=== PATIENT | female | born 1995 | race Caucasian/White ===

== ENCOUNTER 2017-02-12 03:36 | Emergency (ER) | payer OTHER ==
[~2017-02-12] VITALS: Ht 172.7 cm; Wt 60.0 kg
[2017-02-12 04:09] VITALS: BP 116/71; PULSE 81; RESP 19; TEMP 97.9; O2SAT 99
--- NOTE | 2017-02-12 04:12 | PD ---
HPI Chief Complaint: Psychiatric Symptoms Time Seen by Provider: 04:00 Travel History International Travel<30 days: No Contact w/Intl Traveler<30days: No Traveled to known affect area: No History of Present Illness HPI This is a 21-year-old female who presents under [place] act by the police department. The patient reports that she has been depressed and having occasional thoughts of suicide for years. She reports that she was drinking alcohol tonight at a [place] party, went home where her roommate wanted to drink. Someone called the police and the police placed her under [place] act. She reports that she does not see a psychiatrist or primary care physician, cannot afford to. She reports that she recently moved here from [place]. In addition to drinking alcohol she occasionally smokes marijuana. Denies any other illicit drug use. She does endorse self cutting for years. She is requesting a nicotine patch. She has no other complaints at this time. [facility] Social History Alcohol Use: Yes Tobacco Use: Yes Substance Use: Yes Allergies-Medications (Allergen,Severity, Reaction): Coded Allergies: No Known Allergies (Unverified , 02/12/17) Reported Meds & Prescriptions Reported Meds & Active Scripts Active No Active Prescriptions or Reported Medications Review of Systems Except as stated in HPI: all other systems reviewed are Neg Physical Exam Narrative GENERAL: Well-developed well-nourished female in no acute distress SKIN: Warm and dry. Old linear abrasions noted on the extremities. HEAD: Atraumatic. Normocephalic. EYES: Pupils equal and round. No scleral icterus. No injection or drainage. ENT: No nasal bleeding or discharge. Mucous membranes pink and moist. NECK: Trachea midline. No JVD. CARDIOVASCULAR: Regular rate and rhythm. No murmur appreciated. RESPIRATORY: No accessory muscle use. Clear to auscultation. Breath sounds equal bilaterally. GASTROINTESTINAL: Abdomen soft, non-tender, nondistended. Hepatic and splenic margins not palpable. MUSCULOSKELETAL: No obvious deformities. No edema NEUROLOGICAL: Awake and alert. No obvious cranial nerve deficits. Motor grossly within normal limits. Normal speech. PSYCHIATRIC: Appropriate mood and affect; insight and judgment normal. Data Data Last Documented VS Vital Signs Date Time Temp Pulse Resp B/P Pulse Ox O2 Delivery O2 Flow Rate FiO2 02/12/17 04:12 82 19 02/12/17 04:09 97.9 116/71 99 Orders Complete Blood Count With Diff (02/12/17 04:07) Comprehensive Metabolic Panel (02/12/17 04:07) Ed Urine Pregnancytest Poc (02/12/17 04:07) Psych Screen (02/12/17 04:07) Drug Screen, Random Urine (02/12/17 04:07) Alcohol (Ethanol) (02/12/17 04:07) Nicotine 14 Mg Patch.24 Hr (Habitrol 14 (02/12/17 04:15) Lorazepam Inj (Ativan Inj) (02/12/17 04:30) Labs Laboratory Tests Test 02/12/17 02/12/17 03:55 04:00 Urine Opiates Screen NEG Urine Barbiturates Screen NEG Urine Amphetamines Screen NEG Urine Benzodiazepines Screen NEG Urine Cocaine Screen NEG Urine Cannabinoids Screen POS White Blood Count 7.4 TH/MM3 Red Blood Count 4.23 MIL/MM3 Hemoglobin 13.4 GM/DL Hematocrit 38.3 % Mean Corpuscular Volume 90.5 FL Mean Corpuscular Hemoglobin 31.6 PG Mean Corpuscular Hemoglobin 34.9 % Concent Red Cell Distribution Width 12.1 % Platelet Count 268 TH/MM3 Mean Platelet Volume 9.0 FL Neutrophils (%) (Auto) 48.4 % Lymphocytes (%) (Auto) 33.9 % Monocytes (%) (Auto) 8.2 % Eosinophils (%) (Auto) 7.1 % Basophils (%) (Auto) 2.4 % Neutrophils # (Auto) 3.6 TH/MM3 Lymphocytes # (Auto) 2.5 TH/MM3 Monocytes # (Auto) 0.6 TH/MM3 Eosinophils # (Auto) 0.5 TH/MM3 Basophils # (Auto) 0.2 TH/MM3 CBC Comment DIFF FINAL Differential Comment Sodium Level 145 MEQ/L Potassium Level 3.6 MEQ/L Chloride Level 114 MEQ/L Carbon Dioxide Level 21.9 MEQ/L Anion Gap 9 MEQ/L Blood Urea Nitrogen 9 MG/DL Creatinine 0.72 MG/DL Estimat Glomerular Filtration 104 ML/MIN Rate Random Glucose 93 MG/DL Calcium Level 8.5 MG/DL Total Bilirubin 0.3 MG/DL Aspartate Amino Transf 25 U/L (AST/SGOT) Alanine Aminotransferase 21 U/L (ALT/SGPT) Alkaline Phosphatase 77 U/L Total Protein 8.0 GM/DL Albumin 4.1 GM/DL Ethyl Alcohol Level 288 MG/DL MDM Medical Decision Making Medical Screen Exam Complete: Yes Emergency Medical Condition: Yes Medical Record Reviewed: Yes Differential Diagnosis Substance-induced disorder, acute psychosis, major depressive disorder, depressive disorder not otherwise specified, adjustment reaction Narrative Course 21-year-old female presents under Calh[place] act for psychiatric evaluation of suicidal thoughts. Mental health screening discussed with the patient. Psychiatric screen ordered. Positive cannabinoids screen and alcohol levels 288 otherwise unremarkable. The patient is medically cleared for psychiatric disposition. Diagnosis Primary Impression: Suicidal ideation Scripts No Active Prescriptions or Reported Meds Simeon Wahl Feb 12, 2017 04:12
[2017-02-12] MEDS ORDERED: NICOTINE 14 MG/24 HR PATCH T-DERMAL ONE (04:15)
[2017-02-12 04:18] LABS: AUTOMATED NEUTROPHIL # 3.6 TH/MM3 (1.8-7.7); BASOPHIL # 0.2 TH/MM3 (0-0.2); BASOPHIL % 2.4 % (0.0-2.0); EOSINOPHIL # 0.5 TH/MM3 (0-0.4); EOSINOPHIL % 7.1 % (0.0-4.0); HEMATOCRIT 38.3 % (35.0-46.0); HEMO FLAGS DIFF FINAL; LYMPH % 33.9 % (9.0-44.0); LYMPHOCYTE # 2.5 TH/MM3 (1.0-4.8); MEAN CELL VOLUME 90.5 FL (80.0-100.0); MEAN CORPUSCULAR HEMOGLOBIN 31.6 PG (27.0-34.0); MEAN CORPUSCULAR HGB CONC 34.9 % (32.0-36.0); MONO % 8.2 % (0.0-8.0); NEUT % 48.4 % (16.0-70.0); PLATELET COUNT 268 TH/MM3 (150-450); RED BLOOD COUNT 4.23 MIL/MM3 (4.00-5.30); RED CELL DISTRIBUTION WIDTH 12.1 % (11.6-17.2); WHITE BLOOD COUNT 7.4 TH/MM3 (4.0-11.0)
[2017-02-12 04:27] LABS: AMPHETAMINE, URINE NEG (NEG); BARBITURATES, URINE NEG (NEG); COCAINE, URINE NEG (NEG)
[2017-02-12] MEDS ORDERED: LORazepam 2 MG/ML VIAL IM ONE (04:30)
[2017-02-12 04:34] LABS: ALT (GPT) 21 U/L (9-42); ANION GAP 9 MEQ/L (5-15); AST (GOT) 25 U/L (16-38); BICARBONATE 21.9 MEQ/L (21.0-32.0); BLOOD UREA NITROGEN 9 MG/DL (7-18); CHLORIDE 114 MEQ/L (98-107); GLOMERULAR FILTRATION RATE 104 ML/MIN (>89); POTASSIUM 3.6 MEQ/L (3.5-5.1); SODIUM (NA) 145 MEQ/L (136-145)
[2017-02-12 04:36] LABS: ALKALINE PHOSPHATASE 77 U/L (45-117); TOTAL BILIRUBIN ADULT 0.3 MG/DL (0.2-1.0)
--- NOTE | 2017-02-12 10:20 | PD ---
History of Present Illness Chief Complaint: Psychiatric Symptoms Time Seen by Provider: 09:30 Travel History International Travel<30 Days: No Contact w/Intl Traveler<30days: No Known affected area: No Legal Status Legal Status: Calhoun Act [place] Act Signed By: History of Present Illness: This is a 21-year-old female who moved to [place] one week ago with her boyfriend. She was at a green party last night and became intoxicated. She explains that there was more booze to drink and so she went home and continued to drink. She is unsure if she made any suicidal comments but denies being suicidal when Calhoun acted. At this time she states, as she related to the emergency room physician that she is intermittently suicidal and has been for years. Additionally, she has been cutting herself for years as a coping mechanism and she denies that as a suicide attempt. The patient admits that she had too much to drink last night and was advised by this physician to discontinue drinking. She has a interview this morning for a job but states that will have to be rescheduled. Obviously her thinking is forward looking and both she and her boyfriend are going to be looking for jobs. Although the patient denies the ability to seek psychiatric care for financial reasons, this physician believes she should be referred to [facility] for her alcohol abuse and possible medication in the future. [facility] [employer] [employer] Past Medical History Medical History: Denies Significant Hx Immunizations Current: Yes ?: Not LMP: LAST MONTH Past Surgical History Surgical History: No Previous Surgery Psychiatric History Psychiatric History Years ago History of Inpatient Treatment: No Guns or firearms in home: No Social History Hx Alcohol Use: Yes Hx Tobacco Use: Yes Hx Substance Use: Yes Substance Use Type: Alcohol Hx of Substance Use Treatment: No Allergies-Medications (Allergen,Severity, Reaction): Coded Allergies: No Known Allergies (Unverified , 02/12/17) Reported Meds & Prescriptions Reported Meds & Active Scripts Active No Active Prescriptions or Reported Medications Review of Systems ROS Limitations: Clinical Condition Except as stated in HPI: all other systems reviewed are Neg Exam Exam Limitations: Clinical Condition Alert: Yes [place]: Person, Place, Date, Situation Mood: Calm Affect: Appropriate Speech: Clear, Logical Eye Contact: Normal Memory Intact: Immediate, Recent, Remote Insight/Judgement Adequate except for use of substances. MDM Medical Decision Making Medical Record Reviewed: Yes Assessment/Plan In this physician's opinion, the patient does not meet criteria for Calhoun act or 4 inpatient psychiatric hospitalization. Her Calhoun act was lifted and she was recommended to go to [facility] for alcohol abuse. She was also advised to stop drinking. Once she is clean and sober for a period of time, she can be evaluated for her complaints of chronic suicidality. At this point she admits she is not suicidal. Orders Complete Blood Count With Diff (02/12/17 04:07) Comprehensive Metabolic Panel (02/12/17 04:07) Ed Urine Pregnancytest Poc (02/12/17 04:07) Psych Screen (02/12/17 04:07) Drug Screen, Random Urine (02/12/17 04:07) Alcohol (Ethanol) (02/12/17 04:07) Nicotine 14 Mg Patch.24 Hr (Habitrol 14 (02/12/17 04:15) Lorazepam Inj (Ativan Inj) (02/12/17 04:30) Results Vital Signs Date Time Temp Pulse Resp B/P Pulse Ox O2 Delivery O2 Flow Rate FiO2 02/12/17 04:12 82 19 02/12/17 04:09 97.9 81 19 116/71 99 Laboratory Tests Test 02/12/17 02/12/17 03:55 04:00 Urine Opiates Screen NEG Urine Barbiturates Screen NEG Urine Amphetamines Screen NEG Urine Benzodiazepines Screen NEG Urine Cocaine Screen NEG Urine Cannabinoids Screen POS White Blood Count 7.4 Red Blood Count 4.23 Hemoglobin 13.4 Hematocrit 38.3 Mean Corpuscular Volume 90.5 Mean Corpuscular Hemoglobin 31.6 Mean Corpuscular Hemoglobin 34.9 Concent Red Cell Distribution Width 12.1 Platelet Count 268 Mean Platelet Volume 9.0 Neutrophils (%) (Auto) 48.4 Lymphocytes (%) (Auto) 33.9 Monocytes (%) (Auto) 8.2 Eosinophils (%) (Auto) 7.1 Basophils (%) (Auto) 2.4 Neutrophils # (Auto) 3.6 Lymphocytes # (Auto) 2.5 Monocytes # (Auto) 0.6 Eosinophils # (Auto) 0.5 Basophils # (Auto) 0.2 CBC Comment DIFF FINAL Differential Comment Sodium Level 145 Potassium Level 3.6 Chloride Level 114 Carbon Dioxide Level 21.9 Anion Gap 9 Blood Urea Nitrogen 9 Creatinine 0.72 Estimat Glomerular Filtration 104 Rate Random Glucose 93 Calcium Level 8.5 Total Bilirubin 0.3 Aspartate Amino Transf 25 (AST/SGOT) Alanine Aminotransferase 21 (ALT/SGPT) Alkaline Phosphatase 77 Total Protein 8.0 Albumin 4.1 Ethyl Alcohol Level 288 Diagnosis Primary Impression: Suicidal ideation Prescriptions No Active Prescriptions or Reported Meds Lazaro Akins MD Feb 12, 2017 10:20
[2017-02-12 11:00] VITALS: BP 97/51; PULSE 89; RESP 16; O2SAT 97
== END 2017-02-12 12:32 | disposition home or self-care (01) ==
LOC: NEPD 03:36
DX: R45.851 Suicidal ideations (principal); F12.90 Cannabis use, unspecified, uncomplicated; F10.10 Alcohol abuse, uncomplicated; Y90.8 Blood alcohol level of 240 mg/100 ml or more
CPT/HCPCS: 80053; 80307; 84703; 85025; 96372; 99283; J2060